=== PATIENT | female | born 1995 | race Native Hawaiian/Other Pacific Islander ===

== ENCOUNTER 2017-03-15 11:09 | Day surgery (SDC) | payer OTHER ==
[2017-03-15] MEDS ORDERED: Propofol 10 mg/ml Inj (20 ML) ONE ×2 (11:50→13:31)
[2017-03-15] MEDS ORDERED: Midazolam 2 MG/2 ML VIAL ONE ×2 (11:50→13:26)
[2017-03-15 12:18] LABS: INR 1.2
[2017-03-15] MEDS ORDERED: Lidocaine 1%/Epinephrine 1:100000 30 ml vial IJ STA (12:26)
[2017-03-15] MEDS ORDERED: ceFAZolin IV 2 gm in Dextrose 2 GM/50 ML BAG IVPB ONE ×2 (12:32→12:36)
[2017-03-15] MEDS ORDERED: Bupivacaine HCl 0.5% PF (10 ml) Inj ONE (12:35)
[2017-03-15] MEDS ORDERED: Lidocaine 1% Inj (20ml) ONE (12:36)
[2017-03-15] MEDS ORDERED: Lactated Ringer's 1,000 ML IV ONE (13:20)
[2017-03-15] MEDS: Bupivacaine HCl 0.5% PF (10 ml) Inj ONE ×2 (13:46→14:20)
[2017-03-15] MEDS: Lidocaine 2% w Epi 1:100,000 Inj IJ ONE ×2 (13:47→14:20)
--- NOTE | 2017-03-15 14:45 | PCM.SURG1 ---
Surgeon's Initial Post Op Note - Surgeon's Notes Surgeon: Dr. Cleveland 4 H [employer] Specialist: Sandra Arriaga PGY1 Type of Anesthesia: General Endo, Local Pre-Operative Diagnosis: Right Breast Fibroadenoma Operative Findings: see operative report Post-Operative Diagnosis: same Operation Performed: Excision of Right Breast Fibroadenoma Specimen/Specimens Removed: Right Breast Fibroadenoma Estimated Blood Loss: EBL {In ML}: 10 Blood Products Given: N/A Drains Used: No Drains Post-Op Condition: Good Date of Surgery/Procedure: 03/15/17 Time of Surgery/Procedure: 14:45
[2017-03-15] MEDS ORDERED: Acetaminophen-Codeine 300/30 mg Tab PO PRN (15:00)
[2017-03-15 16:29] VITALS: RESP 16; O2SAT 100
[2017-03-15 16:39] VITALS: BP 102/60; PULSE 85; TEMP 98.2
--- NOTE | 2017-03-17 21:45 | OP ---
PROCEDURE DATE: 03/15/2017 PREOPERATIVE DIAGNOSIS: Right breast fibroadenoma. POSTOPERATIVE DIAGNOSIS: Right breast fibroadenoma. PROCEDURE: Excision of right breast fibroadenoma. SURGEON: Eder Cleveland MD. AIR FORCE SENIOR OFFICER: DORA Arriaga, and Jhon Flores, PGY-2 resident. TYPE OF ANESTHESIA: General anesthesia with LMA. ESTIMATED BLOOD LOSS: Around 10 mL. DRAINS: None. PATHOLOGY: The fibroadenoma with surrounding breast tissue was sent for the pathology. COMPLICATIONS: None. INTRAOPERATIVE FINDINGS: The patient had approximately 2 cm fibroadenoma of the right upper outer breast. DESCRIPTION OF PROCEDURE: On intraoperative step, this is a 21-year-old female, who was diagnosed with fibroadenoma of the right breast. The patient was consented for the excision of the fibroadenoma, brought to the OR, placed supine on the operating table. After induction of the general anesthesia, the right breast was prepped and draped in usual sterile fashion. The semicircular 3 cm incision was made. After incising the skin and subcutaneous tissue, upper and lower flaps were created. The dissection was carried down deep into the breast tissue to find the fibroadenoma. The fibroadenoma appeared to be extremely mobile and after proper isolation of the fibroadenoma with dissection, the fibroadenoma was dissected free from the surrounding normal breast tissue and it was sent off the table for the pathology. Patient also had another hard nodule nearby the fibroadenoma that was also excised and after that proper hemostasis was done and the wound was closed in a multiple layer, the breast tissue with 2-0 Vicryl, subcutaneous with 2-0 Vicryl and skin with 4-0 Monocryl. Dry sterile dressing was applied. The patient tolerated the procedure well. Count of the instrument and gauze was correct. There was no apparent complication. Eder Cleveland MD
== END 2017-03-15 16:56 | disposition home or self-care (01) ==
LOC: C.SDS 11:09
PROVIDERS: ATTEND Surgery Surgical Critical Care
DX: D24.1 Benign neoplasm of right breast (principal)
CPT/HCPCS: 19120; 36415; 85610; 88307; J0690; J2250; J2405; J2704; J3010; J7120

== ENCOUNTER 2018-01-26 15:09 | Emergency (ER) | payer OTHER ==
[2018-01-26 15:22] VITALS: BMI 20.5
[2018-01-26 15:29] VITALS: BP 100/67; PULSE 60; RESP 18; TEMP 98.7; O2SAT 96
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
--- NOTE | 2018-01-26 17:29 | RAD ---
Date of service: 01/26/2018 PROCEDURE: Cervical Spine Radiographs. HISTORY: Pain. COMPARISON: None available. FINDINGS: BONES: Alignment maintained. No fracture. Dens Intact. DISC SPACES: Normal. SOFT TISSUES: Normal. No prevertebral soft tissue swelling. OTHER FINDINGS: None. IMPRESSION: Normal cervical spine radiographs
--- NOTE | 2018-01-26 17:29 | RAD ---
Date of service: 01/26/2018 PROCEDURE: Radiographs of the Lumbar Spine. HISTORY: injury COMPARISON: No prior. FINDINGS: BONES: Levoconvex curvature of the lumbar spine centered at L2. No listhesis. No fracture. DISC SPACES: Unremarkable. OTHER FINDINGS: None. IMPRESSION: Unremarkable radiographs of the lumbar spine.
== END 2018-01-26 17:21 | disposition home or self-care (01) ==
LOC: C.ER 15:09
DX: S16.1XXA Strain of muscle, fascia and tendon at neck level, initial encounter (principal); S39.012A Strain of muscle, fascia and tendon of lower back, initial encounter; V89.2XXA Person injured in unspecified motor-vehicle accident, traffic, initial encounter; Y92.414 Local residential or business street as the place of occurrence of the external cause